=== PATIENT | female | born 1985 | race Hispanic/Latino ===

== ENCOUNTER 2020-12-25 06:57 | Emergency (ER) | payer OTHER ==
[~2020-12-25] VITALS: Ht 162.6 cm; Wt 72.6 kg
[2020-12-25 07:21] VITALS: BP 136/87
== END 2020-12-25 07:36 | disposition home or self-care (01) ==
LOC: EDH 06:57
DX: Z02.89 Encounter for other administrative examinations (principal); I10 Essential (primary) hypertension; Z98.890 Other specified postprocedural states

== ENCOUNTER → 2022-04-09 | Outpatient (CLI) | payer BC, OTHER | END | disposition home or self-care (01) | LOC: RAH 03-27 14:36 | PROVIDERS: ATTEND Student in an Organized Health Care Education/Training Program | DX: I70.213 Atherosclerosis of native arteries of extremities with intermittent claudication, bilateral legs (principal); R60.9 Edema, unspecified | CPT/HCPCS: 93926; 93971 ==

== ENCOUNTER 2022-04-24 08:36 | Observation (INO) | payer BC, OTHER ==
[~2022-04-24] VITALS: Ht 162.6 cm; Wt 78.0 kg
[2022-04-24 09:17] LABS: HEMATOCRIT 32.9 % (36-48); MEAN CORPUSCULAR HEMOGLOBIN 23.6 pg (27.0-33.0); MEAN CORPUSCULAR HGB CONC 30.4 g/dL (32.0-36.0); MEAN CORPUSCULAR VOLUME 77.8 fL (79-99); PLATELET COUNT (AUTO) 274 K/uL (130-400); RED BLOOD CELL COUNT(AUTO) 4.23 MIL/uL (4.00-5.50); RED CELL DISTRIBUTION WIDTH 16.6 % (11.0-15.5); WHITE BLOOD COUNT (AUTO) 3.9 K/uL (4.8-10.8)
[2022-04-24 09:31] LABS: CREATININE 0.7 mg/dL (0.5-1.5); INR 0.93 (0.85-1.15); POTASSIUM 3.7 mmol/L (3.5-5.1); PROTHROMBIN TIME 9.8 SEC (9.6-11.6)
[2022-04-24 09:35] LABS: ALBUMIN 3.8 g/dL (3.5-5.0); TOTAL PROTEIN, SERUM 7.7 g/dL (6.0-8.3)
[2022-04-24] MEDS ORDERED: IOHEXOL 350 MG/ML 100ML INFUS..BTL IV ONE (10:35)
[2022-04-24] MEDS ORDERED: POTASSIUM CHLORIDE 20MEQ/100ML 100 ML IV PRN (12:00)
[2022-04-24] MEDS ORDERED: LIDOCAINE HCL-MPF 1% 2ML VIAL IV PRN (12:00)
[2022-04-24] MEDS ORDERED: KCL 20 MEQ ERTAB PO PRN (12:00)
[2022-04-24] MEDS ORDERED: HYDROMORPHONE 1 MG INJ IV PRN (12:00)
[2022-04-24] MEDS ORDERED: HYDROCODONE/ACETAMINOPHEN 5/325 MG TAB PO PRN (12:00)
[2022-04-24] MEDS ORDERED: MAGNESIUM 2GM PREMIX 50ML 50 ML IV PRN (12:00)
[2022-04-24] MEDS ORDERED: POTASSIUM CHLORIDE 10% ELIXIR 20 MEQ/15 ML UDCUP PO PRN (12:00)
[2022-04-24 13:05] VITALS: BP 126/83
[2022-04-24 16:51] VITALS: BP 146/90
[2022-04-24 20:11] VITALS: BP 118/76
[2022-04-24] MEDS: GABAPENTIN 100 MG CAPSULE PO SCH (20:49)
[2022-04-25] VITALS (7 sets, daily range): BP systolic 105–138; BP diastolic 63–92
[2022-04-25] MEDS: GABAPENTIN 100 MG CAPSULE PO SCH (08:15)
[2022-04-25] MEDS ORDERED: HYDROCHLOROTHIAZIDE 25 MG TABLET PO SCH (09:00)
[2022-04-25] MEDS ORDERED: ENOXAPARIN SODIUM 40 MG/0.4 ML SYRINGE SQ SCH (09:00)
[2022-04-25] MEDS ORDERED: LOSARTAN 100 MG TABLET PO SCH (09:00)
[2022-04-25] MEDS ORDERED: AMLODIPINE 5 MG TAB PO SCH (09:00)
[2022-04-25] MEDS ORDERED: GABA-529 PO (10:38)
[2022-04-25] MEDS ORDERED: DESV50TA20 PO (10:38)
[2022-04-25] MEDS ORDERED: AMLO-257 PO (10:38)
[2022-04-25] MEDS ORDERED: LOSA100T58 PO (10:38)
[2022-04-25] MEDS ORDERED: HYDR12.54 PO (10:38)
[2022-04-25] MEDS ORDERED: ONDANSETRON 4MG INJ IVP PRN (12:00)
[2022-04-25] MEDS ORDERED: GADOTERATE MEGLUMINE 10 MMOL/20 ML VIAL IV ONE (14:03)
== END 2022-04-25 20:30 | disposition home or self-care (01) ==
LOC: EDH 08:36 → INTOOBSV 08:37 → DIRECT 08:37 → 2AH 11:48
PROVIDERS: ADMIT Internal Medicine; ATTEND Internal Medicine
DX: M62.81 Muscle weakness (generalized) (principal); R60.0 Localized edema; I10 Essential (primary) hypertension; Z98.891 History of uterine scar from previous surgery
CPT/HCPCS: 80061; 80053; 85027; 85610; 36415; 75635; 93970; 96374; 96372; 81025; 72156; 72158; 72157; Q9967; G0378 ×5; J2405; J1650; A9575

== ENCOUNTER → 2022-05-18 | Outpatient (CLI) | payer BC ==
[~2022-05-18] MED LIST: AMLO-257 PO; DESV50TA20 PO; GABA-529 PO; HYDR12.54 PO; LOSA100T58 PO
== END | disposition home or self-care (01) ==
LOC: RAH 13:42
PROVIDERS: ATTEND Family Medicine
DX: R53.1 Weakness (principal)
CPT/HCPCS: 70260